=== PATIENT | female | born 1985 | race African-American/Black ===

== ENCOUNTER 2017-01-28 11:56 | Day surgery (SDC) | payer OTHER ==
[~2017-01-28] VITALS: Ht 165.1 cm; Wt 57.5 kg
[~2017-01-28 11:56] MED LIST: DOXY100T16 PO; FLAG500T PO; PRIL20CA9 PO; [UNRECOGNIZED DRUG - CODE] XX
[2017-01-28] MEDS ORDERED: NS 1,000 ML IV ONE (13:00)
[2017-01-28] MEDS ORDERED: LIDOCAINE 2% INJ 100 MG/5 ML SDV (FOR ANES.) As Ordered ONE (13:04)
[2017-01-28] MEDS ORDERED: PROPOFOL 200 MG/20 ML VIAL As Ordered ONE (13:04)
--- NOTE | 2017-01-28 13:24 | ROOR ---
Patient Name: Emily Chawla Procedure Date: 01/28/2017 1:04 PM Date of : 1985 Age: 31 Room: [facility] Gender: Female Note Status: Finalized Procedure: Upper Endoscopy + Biopsies Indications: Epigastric abdominal pain, Nausea with vomiting, Persistent vomiting of unknown cause Providers: James Saab MD Referring MD: JUHI HILTON MD Requesting Provider: Medicines: Monitored Anesthesia Care Complications: No immediate complications. Procedure: Pre-Anesthesia Assessment: - The heart rate, respiratory rate, oxygen saturations, blood pressure, adequacy of pulmonary ventilation, and response to care were monitored throughout the procedure. The Endoscope was introduced through the mouth, and advanced to the second part of duodenum. The upper GI endoscopy was accomplished without difficulty. The patient tolerated the procedure well. Findings: The Z-line was regular and was found 40 cm from the incisors. No other significant abnormalities were identified in a careful examination of the stomach. Biopsies were taken with a cold forceps in the gastric antrum for Helicobacter pylori testing. The exam of the duodenum was otherwise normal. Impression: - Z-line regular, 40 cm from the incisors. - Biopsies were taken with a cold forceps for Helicobacter pylori testing. - The examination was otherwise normal. Recommendation: - Patient has a contact number available for emergencies. The signs and symptoms of potential delayed complications were discussed with the patient. Return to normal activities tomorrow. Written discharge instructions were provided to the patient. - High fiber diet. - Discharge patient to home. - Continue present medications. - Await pathology results. - Telephone GI clinic for pathology results in 1 week. - Return to referring physician. - The findings and recommendations were discussed with the patient's family. Jmaes Saab MD James Saab MD 01/28/2017 1:24:03 PM This report has been signed electronically. Number of Addenda: 0 Note Initiated On: 01/28/2017 1:04 PM Estimated Blood Loss: Estimated blood loss: none.
[2017-01-28 13:40] VITALS: BP 132/87
== END 2017-01-28 13:55 | disposition home or self-care (01) ==
LOC: M OPP 11:56
PROVIDERS: ATTEND Internal Medicine Gastroenterology
DX: R10.13 Epigastric pain (principal); R11.2 Nausea with vomiting, unspecified; K44.9 Diaphragmatic hernia without obstruction or gangrene; K29.70 Gastritis, unspecified, without bleeding; R12 Heartburn; K21.9 Gastro-esophageal reflux disease without esophagitis; M25.60 Stiffness of unspecified joint, not elsewhere classified; G43.909 Migraine, unspecified, not intractable, without status migrainosus; Z79.899 Other long term (current) drug therapy

== ENCOUNTER → 2017-01-29 | Outpatient (CLI) | payer OTHER ==
--- NOTE | 2017-01-29 18:16 | REP ---
MRI right hip without contrast 01/29/2017. Clinical history: Severe hip pain for 3 months. States without change symptoms with rest and rehabilitation. I do not have x-rays that were described in the order. I do have a CT abdomen and pelvis 01/01/2017 without IV contrast reviewed in bone window and soft tissue settings. Technique: Whole pelvic coronal T1 and T2 STIR images with small field of view fat suppressed T2, coronal axial and sagittal images. No IV contrast given per our protocol in trauma settings. IV contrast is reserved for infection, suspected tumor, etc. Findings: Whole pelvic T1 and STIR images show marrow signal in the iliac and sacral aspects of the SI joints intact. Sacrum itself intact. Some minor increased signal in the iliac bones above the acetabulum on T1 but not on the STIR images. There is a fairly symmetric pattern of some increased signal on T2 STIR images in the neck to lesser trochanter into the proximal shafts of the femur on both sides, fairly symmetric in the low neck, but greater in the proximal femoral shaft on the right. There is more endosteal signal on the right, marrow hyperintense signal on those STIR and T2 images. This is consistent with stress reaction. The linear dark signal focus on the lesser trochanter may reflect a stress fracture as seen on coronal and axial images. The iliopsoas, obturator internus and hamstring tendon insertions and distal course are all unremarkable. There is no hip joint effusion or loose body. There was only minimal signal in the soft tissues about the greater trochanter that might reflect some mild tendinobursitis of the gluteus medius. Muscle signal was symmetric and homogeneous in the intrinsic and extrinsic muscles of the pelvis, hips, buttocks and proximal thighs. No fluid collection or other abnormalities. Impression: 1. Evidence of stress reaction femoral neck to the lesser trochanter bilaterally in a symmetric fashion and greater in the proximal subtrochanteric right femur than left. The most prominent signal abnormalities are in the proximal subtrochanteric femoral shaft of the right. 2. No joint effusion, fracture line in the femoral head or neck nor definite periosteal reaction at this time. Dark signal linear focus in the right lesser trochanter may reflect a nondisplaced stress fracture. No other significant finding. Signed by Ernesto Lamb MD 01/29/2017 08:39 P
== END ==
LOC: M RAD 15:12
DX: M25.551 Pain in right hip (principal)

== ENCOUNTER → 2017-05-22 | Outpatient (CLI) | payer OTHER ==
[~2017-05-22] MED LIST changes: +CONRAY-43 43% 50ML VIAL (Q9960) As Ordered; -DOXY100T16 PO; -FLAG500T PO; +LIDOCAINE 1% MDV 20ML VIAL As Ordered; -PRIL20CA9 PO; +TRIAMCINOLONE ACETONIDE SUSP 40 MG/ML VIAL (J3301) As Ordered; -[UNRECOGNIZED DRUG - CODE] XX
== END ==
LOC: M RADPRO 10:26
DX: M25.551 Pain in right hip (principal)
CPT/HCPCS: 20610

== ENCOUNTER 2017-12-19 01:30 | Emergency (ER) | payer OTHER | END 2017-12-19 03:53 | disposition left against medical advice (07) | LOC: M ED 01:30 | DX: Z53.29 Procedure and treatment not carried out because of patient's decision for other reasons (principal) ==

== ENCOUNTER 2018-01-10 16:53 | Emergency (ER) | payer OTHER ==
[2018-01-10] MEDS: KETOROLAC 30 MG/ML VIAL (J1885) IV (17:43)
[2018-01-10] MEDS: CYCLOBENZAPRINE 5MG TABLET PO (17:43)
[2018-01-10 18:10] LABS: EOS % 0.5 % (0.0-3.0); HEMATOCRIT 36.2 % (36.0-47.0); HEMOGLOBIN 11.4 g/dl (12.0-15.5); IMMATURE GRANULOCYTE % 0.2 % (0-3.0); LYMPH # 1.7 10^3/uL (1.5-4.5); LYMPH % 40.3 % (24.0-44.0); MEAN CORPUSCULAR HEMOGLOBIN 22.4 pg (27.0-33.0); MEAN CORPUSCULAR HGB CONC 31.5 g/dl (32.0-36.5); MONO # 0.4 10^3/uL (0.0-0.8); MONO % 10.6 % (0.0-5.0); NEUTROPHILS % 47.4 % (36.0-66.0); PLATELET COUNT, AUTOMATED 273 10^3/uL (150-450); RED CELL DISTRIBUTION WIDTH 14.4 % (11.5-14.5); WHITE BLOOD COUNT 4.2 10^3/uL (4.0-10.0)
== END 2018-01-10 18:46 | disposition home or self-care (01) ==
LOC: M ED 16:53
DX: M54.2 Cervicalgia (principal); M54.6 Pain in thoracic spine; Z88.5 Allergy status to narcotic agent
CPT/HCPCS: J1885

== ENCOUNTER → 2018-04-15 | Outpatient (CLI) | payer OTHER ==
[~2018-04-15] MED LIST changes: -CONRAY-43 43% 50ML VIAL (Q9960) As Ordered; +CYCL5TAB PO; +DOXY100T16 PO; +FLAG500T PO; -LIDOCAINE 1% MDV 20ML VIAL As Ordered; +NAPR-855; +PRIL20CA9 PO; +TIZANIDINE; -TRIAMCINOLONE ACETONIDE SUSP 40 MG/ML VIAL (J3301) As Ordered; +[UNRECOGNIZED DRUG - CODE] XX
--- NOTE | 2018-04-15 17:19 | REP ---
BILATERAL BREAST ULTRASOUND: 04/15/2018. Comparison: Bilateral mammogram this date. Clinical history: Bilateral breast pain. Question palpable findings 6-o'clock region, periareolar region each breast. The patient marked the areas. Findings: Right breast showed heterogeneous dense echogenic tissue with multiple small cysts and mildly dilated ducts in the retroareolar zone. At the 6 o'clock position. The largest of these is a bilobed cyst or two adjacent cysts together measuring 7 mm. The left breast at 6 o'clock position also shows a 4 x 4 mm cyst about 1.5 cm from the nipple. There are a few mildly prominent ducts. No other finding. Impression: 1. Right breast with two adjacent cysts or a single bilobed cyst 7 mm 6 o'clock position while the left breast shows a 4 x 4 mm cyst at the 6 o'clock position with both retroareolar zones showing mildly prominent ducts, no other significant finding. The breast parenchyma is very dense. BIRADS ACR category 2, benign. Please see mammogram report this date for final assessment and recommendation. Electronically Signed by Ernesto Lamb MD 04/15/2018 06:06 P
--- NOTE | 2018-04-15 17:24 | REP ---
BILATERAL DIAGNOSTIC DIGITAL MAMMOGRAM: 04/15/2018. Clinical history: Bilateral breast pain with a small retroareolar palpable nodule suggested. This is a baseline mammogram in a 32-year-old female. Comparison: Bilateral breast ultrasound this date. Findings: Standard two-view mammography performed with markers placed by the patient near the site of palpable findings. The breast parenchyma is very dense in a symmetric fashion. This limits the sensitivity of mammography. There are no dominant masses, areas of architectural distortion, suspicious clusters of microcalcification or other secondary signs of malignancy. Bilateral breast ultrasound: The bilateral breast ultrasound showed two adjacent cysts or bilobed cyst 6 o'clock position on the right breast, totaling 7 mm and on the left at 6 o'clock position a 4 x 4 mm simple cyst about 1.5 cm from nipple. Neither of these have a mammographic correlate in the dense parenchyma. Impression: 1. BIRADS 2: BI-RADS/ACR category 2 mammogram. Benign Findings. No evidence of malignancy. Ultrasound confirms simple cysts retroareolar zone each breast where she feels a small palpable finding. 2. Recommend followup mammography at age 40 or sooner if clinically indicated. BIRADS 2: BI-RADS/ACR category 2 mammogram. Benign Findings. This mammogram was interpreted with the aid of an FDA-approved computer-aided detection system. A. Negative x-ray reports should not delay biopsy if a dominant or clinically suspicious mass is present. B. Four to eight percent of cancers are not identified by x-ray. C. Adenosis and dense breasts may obscure an underlying neoplasm The patient states she/he had a clinical breast exam in 02/2018. The patient letter being requested is M2. (Dense). [facility] lifetime risk assessment is 15.4%. Electronically Signed by Ernesto Lamb MD 04/15/2018 06:08 P
== END ==
LOC: M RAD 15:23
PROVIDERS: ATTEND Physician Assistant
DX: N63.0 Unspecified lump in unspecified breast (principal)

== ENCOUNTER → 2018-05-26 | Outpatient (CLI) | payer OTHER ==
[~2018-05-26] MED LIST changes: +CALC1CHW3 PO; +MULT1TAB10 PO; +VENL37.52 PO; +VITA500T3 PO
--- NOTE | 2018-05-26 10:04 | REP ---
COMPLETE ABDOMINAL SONOGRAPHY: HISTORY: Persistent nausea and vomiting. Question gallstones. Epigastric pain. FINDINGS: Scanning through right upper quadrant of the abdomen demonstrates a normal size, partially contracted appearing gallbladder without evidence of stone or polyp. Gallbladder wall is not thickened. Common bile duct is normal measuring 0.4 cm in greatest diameter. No focal liver lesion is seen. Liver is normal in size. Pancreas is unremarkable. The spleen is normal in size homogeneous in texture. Renal cortical echogenicity pattern is normal bilaterally and renal contours are smooth. There is no evidence of hydronephrosis, cyst, mass or calculus in either kidney. The right kidney measures 10.0 x 5.7 x 3.1 cm. Left renal dimensions are 9.4 x 3.9 x 5.2 cm. A normal caliber, 2.1 cm AP dimension, abdominal aorta is seen. IMPRESSION: Normal complete abdominal sonography. Electronically Signed by Armando Ewing MD 05/26/2018 10:31 A
== END ==
LOC: M RAD 08:18
PROVIDERS: ATTEND Internal Medicine Gastroenterology
DX: R10.13 Epigastric pain (principal)

== ENCOUNTER 2018-06-09 10:35 | Day surgery (SDC) | payer OTHER ==
[~2018-06-09] VITALS: Ht 167.6 cm; Wt 57.6 kg
[~2018-06-09 10:35] MED LIST changes: +LIDOCAINE 2% INJ 100 MG/5 ML SDV (FOR ANES.) As Ordered ONE; +PROPOFOL 200 MG/20 ML VIAL As Ordered ONE
[2018-06-09] MEDS ORDERED: NS 1,000 ML IV ONE (11:30)
[2018-06-09] MEDS ORDERED: PROPOFOL 200 MG/20 ML VIAL As Ordered ONE ×2 (11:47→11:56)
--- NOTE | 2018-06-09 12:13 | ROOR ---
Patient Name: Emily Chawla Procedure Date: 06/09/2018 11:26 AM Date of : 1985 Age: 33 Room: [facility] Gender: Female Note Status: Finalized Procedure: Upper GI endoscopy Indications: Epigastric abdominal pain, Suspected gastro-esophageal reflux disease, Weight loss Providers: Samuel Becerra MD Referring MD: JUHI HILTON MD Requesting Provider: Medicines: Monitored Anesthesia Care Complications: No immediate complications. Procedure: Pre-Anesthesia Assessment: - Prior to the procedure, a History and Physical was performed, and patient medications and allergies were reviewed. The patient is competent. The risks and benefits of the procedure and the sedation options and risks were discussed with the patient. All questions were answered and informed consent was obtained. Patient identification and proposed procedure were verified by the physician, the nurse and the anesthesiologist in the procedure room. Mental Status Examination: alert and oriented. Airway Examination: normal oropharyngeal airway and neck mobility. Respiratory Examination: clear to auscultation. CV Examination: normal. Prophylactic Antibiotics: The patient does not require prophylactic antibiotics. Prior Anticoagulants: The patient has taken no previous anticoagulant or antiplatelet agents. ASA Grade Assessment: II - A patient with mild systemic disease. After reviewing the risks and benefits, the patient was deemed in satisfactory condition to undergo the procedure. The anesthesia plan was to use monitored anesthesia care (MAC). Immediately prior to administration of medications, the patient was re-assessed for adequacy to receive sedatives. The heart rate, respiratory rate, oxygen saturations, blood pressure, adequacy of pulmonary ventilation, and response to care were monitored throughout the procedure. The physical status of the patient was re-assessed after the procedure. The Endoscope was introduced through the mouth, and advanced to the second part of duodenum. The upper GI endoscopy was accomplished without difficulty. The patient tolerated the procedure well. Findings: The Z-line was regular and was found 38 cm from the incisors. The SANCHEZ capsule with delivery system was introduced through the mouth and advanced into the esophagus, such that the SANCHEZ pH capsule was positioned 32 cm from the incisors, which was 6 cm proximal to the GE junction. Suction was applied to the well of the SANCHEZ pH capsule to suck in the adjacent mucosa of the esophagus using the external vacuum pump set at a minimum vacuum pressure of 550 mmHg for 30 seconds. The SANCHEZ pH capsule was then deployed by depressing the plunger on top of the handle to advance the locking pin into the mucosa, thereby attaching the capsule to the esophagus. The plunger was then rotated a quarter turn clockwise to release the capsule from the delivery system. The delivery system was then withdrawn. Endoscopy was utilized for probe placement and diagnostic evaluation. Scattered mild inflammation characterized by erythema and granularity was found in the gastric antrum. Biopsies were taken with a cold forceps for Helicobacter pylori testing. Verification of patient identification for the specimen was done by the physician and nurse using the patient's name, date and medical record number. Estimated blood loss was minimal. The duodenal bulb and second portion of the duodenum were normal. Biopsies for histology were taken with a cold forceps for evaluation of celiac disease. Impression: - Z-line regular, 38 cm from the incisors. - Gastritis. Biopsied. - Normal duodenal bulb and second portion of the duodenum. Biopsied. - The SANCHEZ pH capsule was positioned 32 cm from the incisors, which was 6 cm proximal to the GE junction. Recommendation: - Patient has a contact number available for emergencies. The signs and symptoms of potential delayed complications were discussed with the patient. Return to normal activities tomorrow. Written discharge instructions were provided to the patient. - Resume previous diet. - Continue present medications. - Await pathology results. - Based on the biopsy results you will receive a phone call from GI clinic in 2-3 weeks to review the pathology results AND/OR your results will be faxed to your Primary care physician. - Return to primary care physician. Samuel Becerra MD Samuel Becerra MD 06/09/2018 12:13:10 PM Electronically signed by Samuel Becerra MD Number of Addenda: 0 Note Initiated On: 06/09/2018 11:26 AM Estimated Blood Loss: Estimated blood loss was minimal.
--- NOTE | 2018-06-09 12:22 | ROOR ---
Patient Name: Emily Chawla Procedure Date: 06/09/2018 11:24 AM Date of : 1985 Age: 33 Room: [facility] Gender: Female Note Status: Finalized Procedure: Colonoscopy Indications: Chronic diarrhea, Weight loss Providers: Samuel Becerra MD Referring MD: JUHI HILTON MD Requesting Provider: Medicines: Monitored Anesthesia Care Complications: No immediate complications. Procedure: Pre-Anesthesia Assessment: - Prior to the procedure, a History and Physical was performed, and patient medications and allergies were reviewed. The patient is competent. The risks and benefits of the procedure and the sedation options and risks were discussed with the patient. All questions were answered and informed consent was obtained. Patient identification and proposed procedure were verified by the physician, the nurse and the anesthesiologist in the procedure room. Mental Status Examination: alert and oriented. Airway Examination: normal oropharyngeal airway and neck mobility. Respiratory Examination: clear to auscultation. CV Examination: normal. Prophylactic Antibiotics: The patient does not require prophylactic antibiotics. Prior Anticoagulants: The patient has taken no previous anticoagulant or antiplatelet agents. ASA Grade Assessment: II - A patient with mild systemic disease. After reviewing the risks and benefits, the patient was deemed in satisfactory condition to undergo the procedure. The anesthesia plan was to use monitored anesthesia care (MAC). Immediately prior to administration of medications, the patient was re-assessed for adequacy to receive sedatives. The heart rate, respiratory rate, oxygen saturations, blood pressure, adequacy of pulmonary ventilation, and response to care were monitored throughout the procedure. The physical status of the patient was re-assessed after the procedure. The Colonoscope was introduced through the anus and advanced to the terminal ileum, with identification of the appendiceal orifice and IC valve. The colonoscopy was performed without difficulty. The patient tolerated the procedure well. The quality of the bowel preparation was good and adequate to identify polyps 6 mm and larger in size. The terminal ileum, ileocecal valve, appendiceal orifice, and rectum were photographed. Scope insertion time was 3 minutes. Scope withdrawal time was 9 minutes. The total duration of the procedure was 12 minutes. Findings: The perianal and digital rectal examinations were normal. The terminal ileum appeared normal. Normal mucosa was found in the entire colon. Biopsies for histology were taken with a cold forceps from the right colon, left colon and rectosigmoid colon for evaluation of microscopic colitis. Verification of patient identification for the specimen was done by the physician and nurse using the patient's name, date and medical record number. Estimated blood loss was minimal. Non-bleeding external and internal hemorrhoids were found during retroflexion. The hemorrhoids were small. Impression: - The examined portion of the ileum was normal. - Normal mucosa in the entire examined colon. Biopsied. - Non-bleeding external and internal hemorrhoids. Recommendation: - Patient has a contact number available for emergencies. The signs and symptoms of potential delayed complications were discussed with the patient. Return to normal activities tomorrow. Written discharge instructions were provided to the patient. - Resume previous diet. - Continue present medications. - Await pathology results. - Repeat colonoscopy at age 49 for screening purposes. - Based on the biopsy results you will receive a phone call from GI clinic in 2-3 weeks to review the pathology results AND/OR your results will be faxed to your Primary care physician. - Return to primary care physician. Samuel Becerra MD Samuel Becerra MD 06/09/2018 12:22:13 PM Electronically signed by Samuel Becerra MD Number of Addenda: 0 Note Initiated On: 06/09/2018 11:24 AM Estimated Blood Loss: Estimated blood loss was minimal.
[2018-06-09] MEDS ORDERED: ONDANSETRON 4MG/2ML VIAL (J2405) As Ordered ONE (12:28)
[2018-06-09 12:45] VITALS: BP 127/83
== END 2018-06-09 13:11 | disposition home or self-care (01) ==
LOC: M OPP 10:35
PROVIDERS: ATTEND Internal Medicine Gastroenterology
DX: K64.8 Other hemorrhoids (principal); K52.9 Noninfective gastroenteritis and colitis, unspecified; R63.4 Abnormal weight loss; R10.13 Epigastric pain; K29.70 Gastritis, unspecified, without bleeding

== ENCOUNTER 2018-09-22 02:22 | Emergency (ER) | payer OTHER ==
[~2018-09-22] VITALS: Ht 165.1 cm; Wt 64.1 kg
[~2018-09-22 02:22] MED LIST changes: +CYAN500T8 PO; -LIDOCAINE 2% INJ 100 MG/5 ML SDV (FOR ANES.) As Ordered ONE; -PROPOFOL 200 MG/20 ML VIAL As Ordered ONE; -VITA500T3 PO
[2018-09-22] MEDS ORDERED: methylPREDNISolone INJ 125 MG/2 ML VIAL (J2930) IM ONE (03:45)
[2018-09-22] MEDS ORDERED: KETOROLAC 60 MG/2 ML VIAL (J1885) IM ONE (03:45)
[2018-09-22 03:52] VITALS: BP 140/74
== END 2018-09-22 04:10 | disposition home or self-care (01) ==
LOC: M ED 02:22
DX: G43.909 Migraine, unspecified, not intractable, without status migrainosus (principal); Z88.5 Allergy status to narcotic agent
CPT/HCPCS: 96374; 96375; 99283; J1885; J2930

== ENCOUNTER → 2022-12-04 | Outpatient (CLI) | payer OTHER ==
[~2022-12-04] MED LIST changes: +ASPI81TA26; +CYAN500T14 PO; -CYAN500T8 PO; -DOXY100T16 PO; +DOXY100T27 PO; +FERR325T3 PO; +GABA-282 PO; +HYDR-3363; +IBUP-1022 PO; +INDO-16 PO; +MIRT-10; +NEUR300C PO; +PLAQ200T4; +PRENMIS3 PO; +TRAM50TA2 PO
== END ==
LOC: M PLAIMG 06:52
PROVIDERS: ATTEND Orthopaedic Surgery
DX: M25.512 Pain in left shoulder (principal); M75.02 Adhesive capsulitis of left shoulder

== ENCOUNTER 2023-07-25 12:01 | Emergency (ER) | payer OTHER ==
[~2023-07-25] VITALS: Ht 165.1 cm; Wt 72.7 kg
[2023-07-25] MEDS ORDERED: MELO15TA28 PO (12:29)
[2023-07-25] MEDS ORDERED: DICL100G10 TOP (12:29)
[2023-07-25] MEDS ORDERED: GABA-1171 PO (12:29)
[2023-07-25] MEDS ORDERED: HYDR-3363 PO (12:29)
[2023-07-25] MEDS ORDERED: HYDR200T46 PO (12:29)
[2023-07-25] MEDS ORDERED: PRENTAB9 (12:29)
[2023-07-25] MEDS ORDERED: FLUT50BL IH (12:29)
[2023-07-25] MEDS ORDERED: PAME10CA PO (12:29)
[2023-07-25] MEDS ORDERED: OPTI0.5D2 OP (12:29)
[2023-07-25] MEDS ORDERED: CETI-24 PO (12:29)
[2023-07-25] MEDS: METOPROLOL TART 25 MG TABLET PO ONE (13:07)
[2023-07-25 13:14] LABS: APPEARANCE, URINE CLEAR (CLEAR); BACTERIA, URINE AUTO NEGATIVE (NEGATIVE); BILIRUBIN, URINE AUTO NEGATIVE (NEGATIVE); BLOOD, URINE BLOOD NEGATIVE (NEGATIVE); COLOR, URINE STRAW (YELLOW); GLUCOSE, URINE (UA) AUTO NEGATIVE (NEGATIVE); KETONE, URINE AUTO 1+ mg/dL (NEGATIVE); LEUKOCYTE ESTERASE, URINE AUTO NEGATIVE (NEGATIVE); NITRITE, URINE AUTO NEGATIVE (NEGATIVE); PROTEIN, URINE AUTO NEGATIVE (NEGATIVE); RBC, URINE AUTO 1 /HPF (0-3); SPECIFIC GRAVITY URINE AUTO 1.005 (1.002-1.035); SQUAMOUS EPITHELIAL CELL UR AU 1 /HPF (0-6); UROBILINOGEN, URINE AUTO 0.2 mg/dL (0.0-2.0); WBC, URINE AUTO 0 /HPF (0-3)
[2023-07-25 13:20] LABS: BASO % 0.7 % (0.0-1.0); EOS % 0.3 % (0.0-3.0); HEMATOCRIT 38.5 % (36.0-47.0); HEMOGLOBIN 12.3 g/dl (12.0-15.5); LYMPH # 2.2 10^3/uL (1.5-5.0); LYMPH % 38.1 % (24.0-44.0); MEAN CORPUSCULAR HEMOGLOBIN 23.1 pg (27.0-33.0); MEAN CORPUSCULAR HGB CONC 31.9 g/dl (32.0-36.5); MEAN CORPUSCULAR VOLUME 72.4 fl (80.0-96.0); MONO # 0.5 10^3/uL (0.0-0.8); MONO % 8.4 % (2.0-8.0); NEUTROPHILS % 52.3 % (36.0-66.0); PLATELET COUNT, AUTOMATED 226 10^3/uL (150-450); RED BLOOD COUNT 5.32 10^6/uL (4.00-5.40); WHITE BLOOD COUNT 5.7 10^3/uL (4.0-10.0)
[2023-07-25 13:47] LABS: FREE T4 1.24 NG/DL (0.89-1.76)
[2023-07-25 13:52] LABS: BLOOD UREA NITROGEN < 5 MG/DL (9-23); CALCIUM LEVEL 9.2 MG/DL (8.5-10.1); CARBON DIOXIDE LEVEL 25 MMOL/L (20-31); CHLORIDE LEVEL 108 MMOL/L (98-107); CREATININE FOR GFR 0.74 MG/DL (0.55-1.30); GLOMERULAR FILTRATION RATE > 60.0 (>60); GLUCOSE, FASTING 92 MG/DL (60-100); POTASSIUM SERUM 3.9 MMOL/L (3.5-5.1); SODIUM LEVEL 140 MMOL/L (136-145)
[2023-07-25 15:15] VITALS: BP 134/88; TEMP 98; O2SAT 100
[2023-07-25] MEDS ORDERED: METO1TAB87 PO (15:17)
== END 2023-07-25 15:29 | disposition home or self-care (01) ==
LOC: EDBD 12:01 → M ED 12:01
DX: I10 Essential (primary) hypertension (principal); Z88.8 Allergy status to other drugs, medicaments and biological substances; Z79.810 Long term (current) use of selective estrogen receptor modulators (SERMs); Z79.899 Other long term (current) drug therapy

== ENCOUNTER → 2023-11-20 | Outpatient (REF) ==
[~2023-11-20] MED LIST changes: +CETI-24 PO; +DICL100G10 TOP; +FLUT50BL IH; +GABA-1171 PO; +HYDR-3363 PO; +HYDR200T46 PO; +MELO15TA28 PO; +METO1TAB87 PO; +OPTI0.5D2 OP; +PAME10CA PO; +PRENTAB9
== END ==
LOC: M LAB 11:22
PROVIDERS: ATTEND Family Medicine
DX: Z00.00 Encounter for general adult medical examination without abnormal findings (principal)

== ENCOUNTER → 2025-01-14 | Outpatient (CLI) | payer OTHER ==
[~2025-01-14] MED LIST changes: -CYCL5TAB PO; +CYCL5TAB4 PO; +GABA-1172 PO; -GABA-282 PO; -IBUP-1022 PO; +IBUP600T42 PO
== END ==
LOC: M WHC 09:02
PROVIDERS: ATTEND Internal Medicine
DX: Z12.31 Encounter for screening mammogram for malignant neoplasm of breast (principal); R92.323 Mammographic fibroglandular density, bilateral breasts

== ENCOUNTER → 2025-02-16 | Outpatient (CLI) | payer OTHER ==
[2025-02-16 12:00] LABS: ESTRADIOL 79.0 PG/ML; PROGESTERONE 35.75 NG/ML
== END ==
LOC: M LAB 11:03
PROVIDERS: ATTEND Obstetrics & Gynecology Reproductive Endocrinology
DX: Z31.49 Encounter for other procreative investigation and testing (principal)